=== PATIENT | male | born 1995 | race Caucasian/White ===

== ENCOUNTER 2023-11-22 03:39 | Emergency (ER) | payer OTHER ==
--- NOTE | 2023-11-22 03:58 | ERPHSYRPT ---
- History of Present Illness Source: patient Exam Limitations: no limitations Timing/Duration: today Severity: moderate Modifying Factors: Improves With: nothing Associated Symptoms: nausea, vomiting, abdominal pain, cough, fever, No shortness of breath, No chest pain, No rash Hx Tetanus, Diphtheria Vaccination/Date Given: Yes Hx Influenza Vaccination/Date Given: No Hx Pneumococcal Vaccination/Date Given: No <FAVIAN DE SANTIAGO - Last Filed: 11/22/23 07:04> <JACQUE ARAUZ - Last Filed: 11/22/23 11:59> - History of Present Illness Time Seen by Provider: 11/22/23 03:58 Physician History: pt has hx of binge drinking of ETOH. and misses his BP and other meds at those times, He is on chronic benzos for anxiety. He has no hallucination. No CP or ABd pain , but he is having some dry heaves now. He has a fever and ST so may have an infection . He is swallowing OK and is not SObreath. Chest is clear, ADb is nontender without peritoneal signs or masses. later develp abd tenderness so CT abd added. EMS serves as an independent source for HX. Discussed risks/benefits of testing and Tx with pt and family including IVF, Zofran, CBC, CMP, ATivan, lipase amylase, UA,CXR, CT abd,Rocephin , K replacement,and they wish to proceed so these are ordered. results discussed with pt. and family (FAVIAN DE SANTIAGO) Allergies/Adverse Reactions: No Known Drug Allergies Allergy (Verified 11/22/23 04:06) Home Medications: Alprazolam [Alprazolam ER] 1 mg PO DAILY 11/22/23 [History] Metoprolol Tartrate 25 mg [Lopressor 25MG Tab] 25 mg PO DAILY 11/22/23 [History] Trazodone HCl 50 mg [Desyrel 50 mg] 50 mg PO HS 11/22/23 [History] - Review of Systems Constitutional: Fever, No Chills Eyes: No Symptoms Ears, Nose, & Throat: Throat Pain Respiratory: Cough, No Dyspnea Cardiac: No Chest Pain, No Edema, No Syncope Abdominal/Gastrointestinal: Nausea, Vomiting, No Abdominal Pain, No Diarrhea Genitourinary Symptoms: No Dysuria Musculoskeletal: No Back Pain, No Neck Pain Skin: No Rash Neurological: No Dizziness, No Focal Weakness, No Sensory Changes Psychological: No Symptoms Endocrine: No Symptoms Hematologic/Lymphatic: No Symptoms Immunological/Allergic: No Symptoms All Other Systems: Reviewed and Negative <FAVIAN DE SANTIAGO Filed: 11/22/23 07:04> - Past Medical History Pertinent Past Medical History: Yes Neurological History: No Pertinent History ENT History: No Pertinent History Cardiac History: No Pertinent History Respiratory History: Asthma Endocrine Medical History: No Pertinent History Musculoskeletal History: No Pertinent History GI Medical History: No Pertinent History History: No Pertinent History Psycho-Social History: No Pertinent History Male Reproductive Disorders: No Pertinent History - Past Surgical History Past Surgical History: Yes Neuro Surgical History: No Pertinent History Cardiac: No Pertinent History Respiratory: No Pertinent History Gastrointestinal: No Pertinent History Genitourinary: No Pertinent History Musculoskeletal: Orthopedic Surgery Significant Family History: no pertinent family hx - Social History Smoking Status: Never smoker Exposure to second hand smoke: No Drug Use: none Patient Lives Alone: No <FAVIAN DE SANTIAGO Filed: 11/22/23 07:04> - Physical Exam General Appearance: no apparent distress, alert Eye Exam: PERRL/EOMI, eyes nml inspection Ears, Nose, Throat Exam: normal ENT inspection, TMs normal, pharynx normal, moist mucous membranes Neck Exam: normal inspection, non-tender, supple, full range of motion Respiratory Exam: normal breath sounds, lungs clear, No respiratory distress Cardiovascular Exam: regular rate/rhythm, normal heart sounds, normal peripheral pulses Gastrointestinal/Abdomen Exam: soft, normal bowel sounds, No tenderness, No mass Back Exam: normal inspection, normal range of motion, No CVA tenderness, No vertebral tenderness Extremity Exam: normal inspection, normal range of motion, pelvis stable Neurologic Exam: alert, oriented x 3, cooperative, normal mood/affect, nml cerebellar function, nml station & gait, sensation nml, No motor deficits Skin Exam: normal color, warm, dry, No rash Lymphatic Exam: No adenopathy SpO2 Interpretation: normal SpO2: 96 O2 Delivery: Room Air <FAVIAN DE SANTIAGO Filed: 11/22/23 07:04> - Nursing Vital Signs Nursing Vital Signs: Initial Vital Signs Temperature 101.7 F 11/22/23 03:47 Pulse Rate 122 H 11/22/23 03:47 Respiratory Rate 20 11/22/23 03:47 Blood Pressure 147/116 11/22/23 03:47 O2 Sat by Pulse Oximetry 96 11/22/23 03:47 Pain Scale Pain Intensity 2 - Course Nursing assessment & vital signs reviewed: Yes <FAVIAN DE SANTIAGO - Last Filed: 11/22/23 07:04> Ordered Tests: Active Orders 24 hr Category Date Time Status Clean Catch Urine Specimen STAT Care 11/22/23 03:53 Active IV Insertion STAT Care 11/22/23 04:25 Active ABDOMEN AND PELVIS W/0 CONTRAS [CT] Stat Exams 11/22/23 06:49 Completed CHEST 2 VIEWS (PA AND LAT) Stat Exams 11/22/23 06:19 Completed Alcohol [ETHYL ALCOHOL] Stat Lab 11/22/23 04:10 Completed CBC W DIFF Stat Lab 11/22/23 04:10 Completed CMP Stat Lab 11/22/23 04:10 Completed CULTURE,URINE Stat Lab 11/22/23 07:32 Received LIPASE Stat Lab 11/22/23 04:00 Completed Lactic Acid Stat Lab 11/22/23 04:39 Completed MAG [MAGNESIUM] Stat Lab 11/22/23 04:10 Completed UA W/RFX UR CULTURE Stat Lab 11/22/23 07:32 Completed Urine Triage Profile Stat Lab 11/22/23 04:10 Completed Medication Summary Discontinued Medications Generic Name Dose Route Start Last Admin Trade Name Parishq PRN Reason Stop Dose Admin Acetaminophen 1,000 mg 11/22/23 09:04 11/22/23 09:06 Acetaminophen 500 Mg Tablet PO 11/22/23 09:05 1,000 mg STAT STA Administration Acetaminophen Confirm 11/22/23 09:05 Acetaminophen 500 Mg Tablet Administered 11/22/23 09:06 Dose 1,000 mg .ROUTE .STK-MED ONE Famotidine 20 mg 11/22/23 04:39 11/22/23 04:50 Famotidine 20 Mg/1 Vial IV 11/22/23 04:40 20 mg STAT ONE Administration Famotidine Confirm 11/22/23 04:44 Famotidine 20 Mg/1 Vial Administered 11/22/23 04:45 Dose 20 mg IV .STK-MED ONE Sodium Chloride 1,000 mls @ 999 mls/hr 11/22/23 04:39 11/22/23 06:56 Sodium Chloride 0.9% 1000 Ml IV 11/22/23 05:39 Infused .Q1H1M STA Infusion Sodium Chloride Confirm 11/22/23 04:45 Sodium Chloride 0.9% 1000 Ml Administered 11/22/23 04:46 Dose 1,000 mls @ ud .ROUTE .STK-MED ONE Sodium Chloride 1,000 mls @ 999 mls/hr 11/22/23 06:12 11/22/23 08:51 Sodium Chloride 0.9% 1000 Ml IV 11/22/23 07:12 Infused .Q1H1M STA Infusion Ceftriaxone Sodium 1 gm in 100 mls @ 200 mls/hr 11/22/23 06:16 11/22/23 09:25 Rocephin 1 Gm / 100 Ml Nacl IV 11/22/23 06:45 Infused STAT ONE Infusion Sodium Chloride Confirm 11/22/23 07:24 Sodium Chloride 0.9% 1000 Ml Administered 11/22/23 07:25 Dose 1,000 mls @ ud .ROUTE .STK-MED ONE Magnesium Sulfate/Water 2 gm in 50 mls @ 100 mls/hr 11/22/23 07:50 11/22/23 08:51 Magnesium Sulf 2 G/50 Ml Bag IV 11/22/23 08:19 Infused ONCE ONE Infusion Magnesium Sulfate/Water Confirm 11/22/23 07:54 Magnesium Sulf 2 G/50 Ml Bag Administered 11/22/23 07:55 Dose 2 gm in 50 mls @ ud IV .STK-MED ONE Ceftriaxone Sodium Confirm 11/22/23 07:54 Rocephin 1 Gm / 100 Ml Nacl Administered 11/22/23 07:55 Dose 1 gm in 100 mls @ ud IV .STK-MED ONE Lorazepam 1 mg 11/22/23 04:38 11/22/23 04:50 Lorazepam 1 Mg Tablet PO 11/22/23 04:39 1 mg STAT ONE Administration Lorazepam Confirm 11/22/23 04:45 Lorazepam 1 Mg Tablet Administered 11/22/23 04:46 Dose 1 mg .ROUTE .STK-MED ONE Metoprolol Tartrate 25 mg 11/22/23 04:35 11/22/23 04:50 Metoprolol Tartrate 25 Mg Tab PO 11/22/23 04:36 25 mg STAT ONE Administration Metoprolol Tartrate Confirm 11/22/23 04:45 Metoprolol Tartrate 25 Mg Tab Administered 11/22/23 04:46 Dose 25 mg .ROUTE .STK-MED ONE Ondansetron HCl 4 mg 11/22/23 04:38 11/22/23 04:50 Ondansetron Hcl 4 Mg/2 Ml Vial IV 11/22/23 04:39 4 mg STAT ONE Administration Ondansetron HCl Confirm 11/22/23 04:44 Ondansetron Hcl 4 Mg/2 Ml Vial Administered 11/22/23 04:45 Dose 4 mg .ROUTE .STK-MED ONE Pantoprazole Sodium 40 mg 11/22/23 04:39 11/22/23 04:51 Pantoprazole 40 Mg Vial IV 11/22/23 04:40 40 mg STAT ONE Administration Pantoprazole Sodium Confirm 11/22/23 04:45 Pantoprazole 40 Mg Vial Administered 11/22/23 04:46 Dose 40 mg IV .STK-MED ONE Potassium Chloride 20 meq 11/22/23 06:10 11/22/23 08:03 Potassium Chloride Tab 10 Meq Tab PO 11/22/23 06:11 20 meq STAT ONE Administration Potassium Chloride 20 meq 11/22/23 06:11 11/22/23 08:04 Potassium Chloride Tab 10 Meq Tab PO 11/22/23 06:12 Not Given STAT ONE Potassium Chloride Confirm 11/22/23 07:54 Potassium Chloride Tab 10 Meq Tab Administered 11/22/23 07:55 Dose 20 meq .ROUTE .STK-MED ONE Sterile Water Confirm 11/22/23 04:44 Water For Injection,Sterile 10 Ml Vial Administered 11/22/23 04:45 Dose 10 ml IJ .STK-MED ONE Lab/Rad Data: Laboratory Result Diagrams 11/22/23 04:10 11/22/23 04:10 Laboratory Results 11/22/23 11/22/23 11/22/23 Range/Units 07:32 04:39 04:10 WBC (4.0-10.5) x10^3/uL RBC (4.1-5.6) x10^6/uL Hgb (12.5-18.0) g/dL Hct (42-50) % MCV (78-100) fL MCH (26-32) pg MCHC (32-36) g/dL RDW (11.5-14.0) % Plt Count (150-450) x10^3/uL MPV (7.5-11.0) fL Gran % (36.0-66.0) % Immature Gran % (Auto) (0.00-0.4) % Nucleat RBC Rel Count (0.00-0.1) % Eos # (Auto) (0-0.5) x10^3/uL Immature Gran # (Auto) (0.00-0.03) x10^3u/L Absolute Lymphs (auto) (1.0-4.6) x10^3/uL Absolute Monos (auto) (0.0-1.3) x10^3/uL Absolute Nucleated RBC (0.00-0.01) x10^3u/L Lymphocytes % (24.0-44.0) % Monocytes % (0.0-12.0) % Eosinophils % (0.00-5.0) % Basophils % (0.0-0.4) % Absolute Granulocytes (1.4-6.9) x10^3/uL Basophils # (0-0.4) x10^3/uL Sodium (135-145) mmol/L Potassium (3.5-5.1) mmol/L Chloride (98-107) mmol/L Carbon Dioxide (22-30) mmol/L Anion Gap (5-15) MEQ/L BUN (9-20) mg/dL Creatinine (0.66-1.25) mg/dL Estimated GFR ML/MIN Glucose (74-106) mg/dL Lactic Acid 1.6 (0.4-2.0) Calcium (8.4-10.2) mg/dL Magnesium 1.3 L (1.6-2.3) mg/dL Total Bilirubin (0.2-1.3) mg/dL AST (17-59) U/L ALT (0-50) U/L Alkaline Phosphatase (38-126) U/L Serum Total Protein (6.3-8.2) g/dL Albumin (3.5-5.0) g/dL Lipase (23-300) U/L Urine Color Yellow (Yellow) Urine Appearance Turbid A (Clear) Urine pH 5.5 (4.6-8.0) Ur Specific [place] 1.025 (1.005-1.030) Urine Protein Trace A (Negative) Urine Glucose (UA) 100 A (Negative) mg/dL Urine Ketones 40 A (Negative) Urine Blood Small A (Negative) Urine Nitrite Negative (Negative) Urine Bilirubin Negative (Negative) Urine Urobilinogen 0.2 (0.2) mg/dL Ur Leukocyte Esterase Negative (Negative) U Hyaline Cast (Auto) NONE SEEN (0-2) /LPF Urine Microscopic RBC 3-5 (0-5) /HPF Urine Microscopic WBC 0-2 (0-5) /HPF Ur Epithelial Cells None Seen (None Seen) /HPF Urine Bacteria None Seen (None Seen) /HPF Urine Culture Reflexed YES (NO) Urine Opiates Level (NEGATIVE) Ur Methadone (NEGATIVE) Urine Barbiturates (NEGATIVE) Ur Phencyclidine (PCP) (NEGATIVE) Urine Amphetamine (NEGATIVE) U Benzodiazepine Level (NEGATIVE) Urine Cocaine (NEGATIVE) Urine Marijuana (THC) (NEGATIVE) Ethyl Alcohol (0-10) mg/dL Influenza Type A Ag (NEGATIVE) Influenza Type B Ag (NEGATIVE) RSV (PCR) (NEGATIVE) SARS-CoV-2 (PCR) (NEGATIVE) Group A Strep Antibody (NEGATIVE) 11/22/23 11/22/23 11/22/23 Range/Units 04:10 04:10 04:10 WBC (4.0-10.5) x10^3/uL RBC (4.1-5.6) x10^6/uL Hgb (12.5-18.0) g/dL Hct (42-50) % MCV (78-100) fL MCH (26-32) pg MCHC (32-36) g/dL RDW (11.5-14.0) % Plt Count (150-450) x10^3/uL MPV (7.5-11.0) fL Gran % (36.0-66.0) % Immature Gran % (Auto) (0.00-0.4) % Nucleat RBC Rel Count (0.00-0.1) % Eos # (Auto) (0-0.5) x10^3/uL Immature Gran # (Auto) (0.00-0.03) x10^3u/L Absolute Lymphs (auto) (1.0-4.6) x10^3/uL Absolute Monos (auto) (0.0-1.3) x10^3/uL Absolute Nucleated RBC (0.00-0.01) x10^3u/L Lymphocytes % (24.0-44.0) % Monocytes % (0.0-12.0) % Eosinophils % (0.00-5.0) % Basophils % (0.0-0.4) % Absolute Granulocytes (1.4-6.9) x10^3/uL Basophils # (0-0.4) x10^3/uL Sodium 133 L (135-145) mmol/L Potassium 3.1 L (3.5-5.1) mmol/L Chloride 98 (98-107) mmol/L Carbon Dioxide 25 (22-30) mmol/L Anion Gap 13.3 (5-15) MEQ/L BUN 5 L (9-20) mg/dL Creatinine 0.81 (0.66-1.25) mg/dL Estimated GFR 124.7 ML/MIN Glucose 146 H (74-106) mg/dL Lactic Acid (0.4-2.0) Calcium 9.4 (8.4-10.2) mg/dL Magnesium (1.6-2.3) mg/dL Total Bilirubin 0.80 (0.2-1.3) mg/dL AST 40 (17-59) U/L ALT 52 H (0-50) U/L Alkaline Phosphatase 125 (38-126) U/L Serum Total Protein 8.2 (6.3-8.2) g/dL Albumin 4.8 (3.5-5.0) g/dL Lipase (23-300) U/L Urine Color (Yellow) Urine Appearance (Clear) Urine pH (4.6-8.0) Ur Specific [place] (1.005-1.030) Urine Protein (Negative) Urine Glucose (UA) (Negative) mg/dL Urine Ketones (Negative) Urine Blood (Negative) Urine Nitrite (Negative) Urine Bilirubin (Negative) Urine Urobilinogen (0.2) mg/dL Ur Leukocyte Esterase (Negative) U Hyaline Cast (Auto) (0-2) /LPF Urine Microscopic RBC (0-5) /HPF Urine Microscopic WBC (0-5) /HPF Ur Epithelial Cells (None Seen) /HPF Urine Bacteria (None Seen) /HPF Urine Culture Reflexed (NO) Urine Opiates Level NEGATIVE (NEGATIVE) Ur Methadone NEGATIVE (NEGATIVE) Urine Barbiturates NEGATIVE (NEGATIVE) Ur Phencyclidine (PCP) NEGATIVE (NEGATIVE) Urine Amphetamine NEGATIVE (NEGATIVE) U Benzodiazepine Level POSITIVE A (NEGATIVE) Urine Cocaine NEGATIVE (NEGATIVE) Urine Marijuana (THC) NEGATIVE (NEGATIVE) Ethyl Alcohol < 10 (0-10) mg/dL Influenza Type A Ag (NEGATIVE) Influenza Type B Ag (NEGATIVE) RSV (PCR) (NEGATIVE) SARS-CoV-2 (PCR) (NEGATIVE) Group A Strep Antibody (NEGATIVE) 11/22/23 11/22/23 11/22/23 Range/Units 04:10 04:10 04:10 WBC 17.0 H (4.0-10.5) x10^3/uL RBC 5.05 (4.1-5.6) x10^6/uL Hgb 15.9 (12.5-18.0) g/dL Hct 44.8 (42-50) % MCV 88.7 (78-100) fL MCH 31.5 (26-32) pg MCHC 35.5 (32-36) g/dL RDW 12.1 (11.5-14.0) % Plt Count 442 (150-450) x10^3/uL MPV 9.1 (7.5-11.0) fL Gran % 90.9 H (36.0-66.0) % Immature Gran % (Auto) 0.4 (0.00-0.4) % Nucleat RBC Rel Count 0.0 (0.00-0.1) % Eos # (Auto) 0.05 (0-0.5) x10^3/uL Immature Gran # (Auto) 0.07 H (0.00-0.03) x10^3u/L Absolute Lymphs (auto) 0.68 L (1.0-4.6) x10^3/uL Absolute Monos (auto) 0.70 (0.0-1.3) x10^3/uL Absolute Nucleated RBC 0.00 (0.00-0.01) x10^3u/L Lymphocytes % 4.0 L (24.0-44.0) % Monocytes % 4.1 (0.0-12.0) % Eosinophils % 0.3 (0.00-5.0) % Basophils % 0.3 (0.0-0.4) % Absolute Granulocytes 15.43 H (1.4-6.9) x10^3/uL Basophils # 0.05 (0-0.4) x10^3/uL Sodium (135-145) mmol/L Potassium (3.5-5.1) mmol/L Chloride (98-107) mmol/L Carbon Dioxide (22-30) mmol/L Anion Gap (5-15) MEQ/L BUN (9-20) mg/dL Creatinine (0.66-1.25) mg/dL Estimated GFR ML/MIN Glucose (74-106) mg/dL Lactic Acid (0.4-2.0) Calcium (8.4-10.2) mg/dL Magnesium (1.6-2.3) mg/dL Total Bilirubin (0.2-1.3) mg/dL AST (17-59) U/L ALT (0-50) U/L Alkaline Phosphatase (38-126) U/L Serum Total Protein (6.3-8.2) g/dL Albumin (3.5-5.0) g/dL Lipase (23-300) U/L Urine Color (Yellow) Urine Appearance (Clear) Urine pH (4.6-8.0) Ur Specific [place] (1.005-1.030) Urine Protein (Negative) Urine Glucose (UA) (Negative) mg/dL Urine Ketones (Negative) Urine Blood (Negative) Urine Nitrite (Negative) Urine Bilirubin (Negative) Urine Urobilinogen (0.2) mg/dL Ur Leukocyte Esterase (Negative) U Hyaline Cast (Auto) (0-2) /LPF Urine Microscopic RBC (0-5) /HPF Urine Microscopic WBC (0-5) /HPF Ur Epithelial Cells (None Seen) /HPF Urine Bacteria (None Seen) /HPF Urine Culture Reflexed (NO) Urine Opiates Level (NEGATIVE) Ur Methadone (NEGATIVE) Urine Barbiturates (NEGATIVE) Ur Phencyclidine (PCP) (NEGATIVE) Urine Amphetamine (NEGATIVE) U Benzodiazepine Level (NEGATIVE) Urine Cocaine (NEGATIVE) Urine Marijuana (THC) (NEGATIVE) Ethyl Alcohol (0-10) mg/dL Influenza Type A Ag NEGATIVE (NEGATIVE) Influenza Type B Ag NEGATIVE (NEGATIVE) RSV (PCR) NEGATIVE (NEGATIVE) SARS-CoV-2 (PCR) NEGATIVE (NEGATIVE) Group A Strep Antibody NOT DETECTED (NEGATIVE) 11/22/23 Range/Units 04:00 WBC (4.0-10.5) x10^3/uL RBC (4.1-5.6) x10^6/uL Hgb (12.5-18.0) g/dL Hct (42-50) % MCV (78-100) fL MCH (26-32) pg MCHC (32-36) g/dL RDW (11.5-14.0) % Plt Count (150-450) x10^3/uL MPV (7.5-11.0) fL Gran % (36.0-66.0) % Immature Gran % (Auto) (0.00-0.4) % Nucleat RBC Rel Count (0.00-0.1) % Eos # (Auto) (0-0.5) x10^3/uL Immature Gran # (Auto) (0.00-0.03) x10^3u/L Absolute Lymphs (auto) (1.0-4.6) x10^3/uL Absolute Monos (auto) (0.0-1.3) x10^3/uL Absolute Nucleated RBC (0.00-0.01) x10^3u/L Lymphocytes % (24.0-44.0) % Monocytes % (0.0-12.0) % Eosinophils % (0.00-5.0) % Basophils % (0.0-0.4) % Absolute Granulocytes (1.4-6.9) x10^3/uL Basophils # (0-0.4) x10^3/uL Sodium (135-145) mmol/L Potassium (3.5-5.1) mmol/L Chloride (98-107) mmol/L Carbon Dioxide (22-30) mmol/L Anion Gap (5-15) MEQ/L BUN (9-20) mg/dL Creatinine (0.66-1.25) mg/dL Estimated GFR ML/MIN Glucose (74-106) mg/dL Lactic Acid (0.4-2.0) Calcium (8.4-10.2) mg/dL Magnesium (1.6-2.3) mg/dL Total Bilirubin (0.2-1.3) mg/dL AST (17-59) U/L ALT (0-50) U/L Alkaline Phosphatase (38-126) U/L Serum Total Protein (6.3-8.2) g/dL Albumin (3.5-5.0) g/dL Lipase 74 (23-300) U/L Urine Color (Yellow) Urine Appearance (Clear) Urine pH (4.6-8.0) Ur Specific [place] (1.005-1.030) Urine Protein (Negative) Urine Glucose (UA) (Negative) mg/dL Urine Ketones (Negative) Urine Blood (Negative) Urine Nitrite (Negative) Urine Bilirubin (Negative) Urine Urobilinogen (0.2) mg/dL Ur Leukocyte Esterase (Negative) U Hyaline Cast (Auto) (0-2) /LPF Urine Microscopic RBC (0-5) /HPF Urine Microscopic WBC (0-5) /HPF Ur Epithelial Cells (None Seen) /HPF Urine Bacteria (None Seen) /HPF Urine Culture Reflexed (NO) Urine Opiates Level (NEGATIVE) Ur Methadone (NEGATIVE) Urine Barbiturates (NEGATIVE) Ur Phencyclidine (PCP) (NEGATIVE) Urine Amphetamine (NEGATIVE) U Benzodiazepine Level (NEGATIVE) Urine Cocaine (NEGATIVE) Urine Marijuana (THC) (NEGATIVE) Ethyl Alcohol (0-10) mg/dL Influenza Type A Ag (NEGATIVE) Influenza Type B Ag (NEGATIVE) RSV (PCR) (NEGATIVE) SARS-CoV-2 (PCR) (NEGATIVE) Group A Strep Antibody (NEGATIVE) - Progress Progress: improved, re-examined Counseled pt/family regarding: lab results, diagnosis, need for follow-up, rad results <FAVIAN DE SANTIAGO - Last Filed: 11/22/23 07:04> <JACQUE ARAUZ - Last Filed: 11/22/23 11:59> - Progress Progress Note: 11/22/23 06:51 pt is handed over to Dr. Arauz at change of shift for final disposition and interpretation of remaining labs and imaging after discussion of the findings and pendings and introduction. (FAVIAN DE SANTIAGO) 11/22/23 11:51 Patient is checked out to me at end of Dr. Valera shift with pending CT results. Patient presented with fever/sore throat and some dry heaving and while in the ER developed some abdominal pain and vomited once. Patient has a temperature of 103, I have given him Tylenol, feeling better. During my evaluation patient has bilateral clear lungs, abdominal exam is soft nontender with hypoactive bowel sounds. Patient workup showed white count of 17, normal lactate, potassium of 3.1 and magnesium of 1.3, started on replacement. Patient chest x-ray negative for any acute cardiopulmonary findings reviewed by me followed by official read. Patient CT showed moderately dilated small bowel loops with air-fluid levels and mildly dilated transverse colon and edema of ascending and descending colon with some mesenteric stranding suggesting acute colitis. Patient has been given a dose of Rocephin by Dr. Valera. Has negative strep flu and COVID. Last drink was 2 days ago. Patient is advised to stay in the hospital with IV antibiotics and fluids but he does not want to stay in the hospital at all. Patient is ad amant about going home. He likes to have oral antibiotics. I would start him on Levaquin and Flagyl and recommended taking Tylenol ibuprofen as needed. Discussed with patient about not to drink while being on Flagyl because of disulfiram reaction. Patient understands and agrees with it. Patient is not a daily drinker but binge drinker. Discussed signs symptoms of worsening needing return to ER which she seems understanding. Stable for discharge. (JACQUE ARAUZ) Medical Desision Making - Discussion of managment Reviewed:: Test results, Need for additional workup Agreed on:: Treatment plan, need for follow-up - Diagnostic Testing Diagnostic test were ordered, analyzed, and reviewed by me: Yes - Risk of complications The pt has a mod risk of morbidity or mortality based on: Need for prescription drug management The pt has a high risk of morbidity or mortality based on: Decision regarding hospitilization or escalation of hosp level of care <FAVIAN DE SANTIAGO - Last Filed: 11/22/23 07:04> - Diagnostic Testing Radiological Interpretation: Interpreted by me, Reviewed by me <JACQUE AARUZ - Last Filed: 11/22/23 11:59> - Departure Critical Care Time: No <FAVIAN DE SANTIAGO - Last Filed: 11/22/23 07:04> - Departure Departure Disposition: Home <JACQUE ARAUZ - Last Filed: 11/22/23 11:59> - Departure Clinical Impression: Colitis, Hypokalemia, Hypomagnesemia Condition: Good Referrals: ALIYAH ESPITIA [Primary Care Provider] - Follow up with PCP 1 day Instructions: Colitis, High-potassium diet, Colitis - Discharge ins tructions Additional Instructions: Drink plenty of fluids to keep yourself well-hydrated. Follow-up with primary care for reevaluation in 1 to 2 days. Take Tylenol/ibuprofen as needed. Return to ER for intractable abdominal pain/vomiting/diarrhea/fever chills etc. do not drink alcohol while taking Flagyl. Prescriptions: Metronidazole 500 mg [Flagyl 500 MG] 500 mg PO TID #30 tablet Levofloxacin [Levaquin 500 MG Tablet] 500 mg PO DAILY #10 tablet Potassium Chloride 20 meq PO DAILY 5 Days #5 tablet
[2023-11-22 04:28] LABS: ALBUMIN 4.8 g/dL (3.5-5.0); ANION GAP 13.3 MEQ/L (5-15); BILIRUBIN,TOTAL 0.8 mg/dL (0.2-1.3); Calcium 9.4 mg/dL (8.4-10.2); Creatinine 1 0.81 mg/dL (0.66-1.25); EST GLOMERULAR FILTRATION RATE 124.7 ML/MIN; Potassium 3.1 mmol/L (3.5-5.1); Total Protein 8.2 g/dL (6.3-8.2)
[2023-11-22 04:30] LABS: Amphetamine,Urine NEGATIVE (NEGATIVE); Barbiturate,Urine NEGATIVE (NEGATIVE); Benzodiazepine,Urine POSITIVE (NEGATIVE); Cocaine,Urine NEGATIVE (NEGATIVE); Methadone,Urine NEGATIVE (NEGATIVE); Opiate,Urine NEGATIVE (NEGATIVE); PCP,Urine NEGATIVE (NEGATIVE); THC,Urine NEGATIVE (NEGATIVE)
[2023-11-22 04:32] LABS: Absolute Neutrophil Ct (ANC) 15.43 x10^3/uL (1.4-6.9); BASOPHIL % 0.3 % (0.0-0.4); Basophil (Absolute #) 0.05 x10^3/uL (0-0.4); Eosinophil % 0.3 % (0.00-5.0); Eosinophil (Absolute #) 0.05 x10^3/uL (0-0.5); Hematocrit 44.8 % (42-50); Hemoglobin 15.9 g/dL (12.5-18.0); IMMATURE GRAN # 0.07 x10^3u/L (0.00-0.03); IMMATURE GRAN % 0.4 % (0.00-0.4); Lymphocyte (Absolute #) 0.68 x10^3/uL (1.0-4.6); Mean Cell Volume 88.7 fL (78-100); Mean Corpuscular Hemoglobin 31.5 pg (26-32); Mean Corpuscular Hgb Concent. 35.5 g/dL (32-36); Mean Platelet Volume 9.1 fL (7.5-11.0); Monocytes % 4.1 % (0.0-12.0); Neutrophil % 90.9 % (36.0-66.0); Platelet Count 442 x10^3/uL (150-450); Red Blood Count 5.05 x10^6/uL (4.1-5.6); Red Cell Distribution Width 12.1 % (11.5-14.0)
[2023-11-22] MEDS ORDERED: Zofran 4 MG/2 ML VIAL ONE (04:44)
[2023-11-22] MEDS ORDERED: Sterile H2O 10 ml IJ ONE (04:44)
[2023-11-22] MEDS ORDERED: Pepcid 20 MG VIAL IV ONE (04:44)
[2023-11-22] MEDS ORDERED: Lopressor 25MG Tab ONE (04:45)
[2023-11-22] MEDS ORDERED: PROTONIX 40 MG IV IV ONE (04:45)
[2023-11-22] MEDS ORDERED: Ativan 1 MG ONE (04:45)
[2023-11-22] MEDS ORDERED: Sodium Chloride 0.9% 1000 ML 1,000 ML ONE ×2 (04:45→07:24)
[2023-11-22] MEDS: Sodium Chloride 0.9% 1000 ML 1,000 ML IV STA ×2 (04:48→07:48)
[2023-11-22] MEDS: Ativan 1 MG PO ONE (04:50)
[2023-11-22] MEDS: Zofran 4 MG/2 ML VIAL IV ONE (04:50)
[2023-11-22] MEDS: Lopressor 25MG Tab PO ONE (04:50)
[2023-11-22] MEDS: Pepcid 20 MG VIAL IV ONE (04:50)
[2023-11-22 04:51] LABS: INFLUENZA A NEGATIVE (NEGATIVE); INFLUENZA B NEGATIVE (NEGATIVE); RESPIRATORY SYNCTIAL VIRUS NEGATIVE (NEGATIVE); SARS-CoV-2 Xpert Express NEGATIVE (NEGATIVE)
[2023-11-22] MEDS: PROTONIX 40 MG IV IV ONE (04:51)
[2023-11-22 05:14] VITALS: PULSE 106; RESP 16
[2023-11-22 07:53] LABS: Appearance Turbid (Clear); Bacteria None Seen /HPF (None Seen); Bilirubin Negative (Negative); Blood Small (Negative); Epithelial Cells None Seen /HPF (None Seen); Glucose, Urine 100 mg/dL (Negative); Hyaline Casts NONE SEEN /LPF (0-2); Ketones 40 (Negative); Leukocyte Esterase Negative (Negative); Nitrite Negative (Negative); Ph 5.5 (4.6-8.0); Protein,Urine Dip Trace (Negative); Specific Gravity 1.025 (1.005-1.030); Urobilinogen 0.2 mg/dL (0.2); WBC 0-2 /HPF (0-5)
[2023-11-22 07:54] LABS: ADD URINE CULTURE? YES (NO)
[2023-11-22] MEDS ORDERED: Klor Con ONE (07:54)
[2023-11-22] MEDS ORDERED: MAGNESIUM SULF 2 G/50 ML BAG 2 GM/50 ML PIGGYBACK IV ONE (07:54)
[2023-11-22] MEDS ORDERED: ROCEPHIN 1 GM / 100 ML NaCl 1 GM/100 ML IVPB IV ONE (07:54)
[2023-11-22] MEDS: MAGNESIUM SULF 2 G/50 ML BAG 2 GM/50 ML PIGGYBACK IV ONE (07:57)
[2023-11-22] MEDS: Klor Con PO ONE ×2 (08:03→08:04)
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
[2023-11-22] MEDS: ROCEPHIN 1 GM / 100 ML NaCl 1 GM/100 ML IVPB IV ONE (08:52)
[2023-11-22 09:03] VITALS: TEMP 103.2
[2023-11-22] MEDS ORDERED: TYLENOL EXTRA STRENGTH 500 MG ONE (09:05)
[2023-11-22] MEDS: TYLENOL EXTRA STRENGTH 500 MG PO STA (09:06)
[2023-11-22 11:15] VITALS: BP 97/62; O2SAT 95
--- NOTE | 2023-11-22 11:25 | XRAY ---
CLINICAL HISTORY: abd pain and fever COMPARISON: None. TECHNIQUE: CT of the abdomen and pelvis was performed with axial images as well as sagittal and coronal reconstruction images without intravenous contrast. One of the following dose reduction techniques was utilized for this exam.Automated exposure control, adjustment of the mA and/or kV according to patient size, and use of iterative reconstruction. FINDINGS: Hepatomegaly, measuring 19 cm at the largest craniocaudal span in the right lobe No focal or diffuse parenchymal abnormality. No hepatic mass is identified. The portal vein, intrahepatic biliary radicals and the bile ducts are normal. Gallbladder appears normal with wall thickness. No radio-opaque calculus or pericholecystic fluid was identified. Common bile appears normal. Pancreas appears normal. No peripancreatic fat stranding, pancreatic pseudocyst or peripancreatic fluid collection. Spleen normal in size, no mass seen. Both adrenal glands are unremarkable. Both kidneys are normal in size, shape and orientation. No calculi, cyst mass or hydronephrosis seen on either side. Both ureters and urinary bladder appear normal. Moderate dilation of small bowel loops, filled with liquid and gaseous content, forming some air-fluid levels. The colon is mildly dilated (measuring up to 4 cm the transverse colon), with mild wall edema mainly in the ascending and descending colon, and a subtle "halo-fat sign" in the latter. Appendix is separately visualized and is normal in caliber without features of acute appendicitis. Caecum and ileocecal junction appear normal. Engorgement of vasa recta is also visualized, and several small mesenteric lymph nodes, although not enlarged. Visualized thoracic and lumbar spine appear normal. No lytic or sclerotic bone lesions in visualized bones. IMPRESSION: Moderate dilation of small bowel loops, filled with liquid and gaseous content, forming some air-fluid levels. Mildly dilated transverse colon, and edema in the ascending and descending colonic wall. Engorgement of vasa recta is also visualized, and several small mesenteric lymph nodes, although not enlarged. Hepatomegaly (19 cm). These are suggestive of colitis with accompanying subocclusion findings. Correlate clinically. Follow-up recommended. [facility] ER was called at [phone] at 11:18 PM EST, 11/22/2023 and results were verbally communicated to Dr Reeves Electronically Signed by: Jhonatan Garza MD. (11/22/2023 11:22:15 EDT)
== END 2023-11-22 12:17 | disposition home or self-care (01) ==
LOC: ED 03:39
DX: K52.9 Noninfective gastroenteritis and colitis, unspecified (principal); E87.6 Hypokalemia; E83.42 Hypomagnesemia; R50.9 Fever, unspecified; J02.9 Acute pharyngitis, unspecified; R11.2 Nausea with vomiting, unspecified; Z79.899 Other long term (current) drug therapy
CPT/HCPCS: 0241U; 36000; 36415; 71046; 74176; 80053; 80307; 81001; 82077; 83605; 83690; 83735; 85025; 87086; 87651; 96360; 96365; 96374; 96375; 99285; J0696; J2405; A9270-GY; J3475

== ENCOUNTER 2024-03-06 13:10 | Emergency (ER) | payer OTHER ==
[2024-03-06 13:30] VITALS: TEMP 98.3
[2024-03-06 13:58] VITALS: O2SAT 98
[2024-03-06 14:01] LABS: Absolute Neutrophil Ct (ANC) 5.29 x10^3/uL (1.78-5.38); BASOPHIL % 0.7 % (0.2-1.2); Basophil (Absolute #) 0.05 x10^3/uL (0.01-0.08); Eosinophil % 0.1 % (0.8-7.0); Eosinophil (Absolute #) 0.01 x10^3/uL (0.04-0.54); Hematocrit 42.7 % (40.1-51.0); Hemoglobin 14.9 g/dL (13.7-17.5); IMMATURE GRAN # 0.02 x10^3u/L (0.001-0.031); IMMATURE GRAN % 0.3 % (0.001-0.429); Lymphocyte (Absolute #) 0.98 x10^3/uL (1.32-3.57); Lymphocytes % 14.3 % (21.8-53.1); Mean Cell Volume 89.9 fL (79.0-92.2); Mean Corpuscular Hemoglobin 31.4 pg (25.7-32.2); Mean Corpuscular Hgb Concent. 34.9 g/dL (32.3-36.5); Mean Platelet Volume 8.8 fL (9.4-12.4); Monocytes % 7.3 % (5.3-12.2); Neutrophil % 77.3 % (34.0-67.9); Platelet Count 357 x10^3/uL (163-337); Red Blood Count 4.75 x10^6/uL (4.63-6.08); Red Cell Distribution Width 12.5 % (11.6-14.4); White Blood Count 6.9 x10^3/uL (4.23-9.07)
--- NOTE | 2024-03-06 14:02 | ERPHSYRPT ---
- History of Present Illness Time Seen by Provider: 03/06/24 13:13 Source: patient Exam Limitations: no limitations Patient Subjective Stated Complaint: pt has waken up the past couple of days with vertigo so he feels he is going through alcohol withdraw Triage Nursing Assessment: Pt brought to the ER by his mother, hypertensive, no pain, dizziness with mild nausea, last drank on Wednesday morning and had one beer yesterday to see if it would help him, doesn't appear to be in any distress Physician History: Patient states that he does use alcohol. Has not used in 72 hours. Is concerned about withdrawal. Patient has a history of intermittent alcohol abuse over the past 3 years. States he does go on "benders". No falls or other traumas. Patient states that he has not felt well. He did try to drink beer yesterday. States that he feels fuzzy. He is unsure anything else to make it better or worse. Patient states that he did recently go through a really bad break-up. States that he did see his ex partner yesterday. 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 Allergies/Adverse Reactions: No Known Drug Allergies Allergy (Verified 03/06/24 13:30) Home Medications: Alprazolam [Alprazolam ER] 1 mg PO DAILY 11/22/23 [History] Metoprolol Succinate 25 mg Xl* [Toprol-Xl 25MG Tablets] 25 mg PO DAILY 03/06/24 [History] Hx Tetanus, Diphtheria Vaccination/Date Given: Yes Hx Influenza Vaccination/Date Given: No Hx Pneumococcal Vaccination/Date Given: No Travel Risk - International Travel Have you traveled outside of the country in past 3 weeks: No - Emerging Infectious Disease Are you exhibiting symptoms associated with any current EIDs: No - Past Medical History Pertinent Past Medical History: Yes Neurological History: No Pertinent History ENT History: No Pertinent History Cardiac History: No Pertinent History Respiratory History: Asthma Endocrine Medical History: No Pertinent History Musculoskeletal History: No Pertinent History GI Medical History: No Pertinent History History: No Pertinent History Psycho-Social History: Anxiety, Bipolar Male Reproductive Disorders: No Pertinent History Other Medical History: moderate alcohol use disorder - Past Surgical History Past Surgical History: Yes Neuro Surgical History: No Pertinent History Cardiac: No Pertinent History Respiratory: No Pertinent History Gastrointestinal: No Pertinent History Genitourinary: No Pertinent History Musculoskeletal: Orthopedic Surgery Significant Family History: no pertinent family hx - Social History Smoking Status: Current every day smoker Exposure to second hand smoke: Yes Drug Use: none Patient Lives Alone: No - Social Determinants of Health Will the patient participate in the screening: Yes Do you worry about a steady place to live?: No Do you have any problems with any of the following?: No known problems In the past 12 months,have you had to go without utilities?: No Transportation Issues: No Has anyone in your support network made you feel unsafe?: No Have you or anyone in your house had to go without enough: No - Nursing Vital Signs Nursing Vital Signs: Initial Vital Signs Temperature 98.3 F 03/06/24 13:20 Pulse Rate 86 03/06/24 13:20 Blood Pressure 172/118 03/06/24 13:20 O2 Sat by Pulse Oximetry 99 03/06/24 13:20 Pain Scale Pain Intensity 0 - Physical Exam SpO2: 98 Comments: 03/06/24 15:40 Review of Systems Constitutional: Negative for fever. HENT: Negative for congestion. Respiratory: Negative for shortness of breath. Cardiovascular: Negative for chest pain. Gastrointestinal: Negative for abdominal pain. Genitourinary: Negative for dysuria. Musculoskeletal: Negative for back pain. Skin: Negative for rash. Neurological: Negative for headaches. Psychiatric/Behavioral: Negative for behavioral problems. All other systems reviewed and are negative. Physical Exam Vitals signs and nursing note reviewed. Constitutional: Appearance: Patient is well-developed. HENT: Head: Normocephalic and atraumatic. Eyes: Conjunctiva/sclera: Conjunctivae normal. Neck: Musculoskeletal: Normal range of motion. Trachea: No tracheal deviation. Cardiovascular: Rate and Rhythm: Normal rate. Pulmonary: Effort: Pulmonary effort is normal. No respiratory distress. Abdominal: Palpations: Abdomen is soft. Musculoskeletal: General: No deformity. Skin: General: Skin is warm and dry. Neurological/ Psychiatric: Mental Status: Mental status, behavior, interaction with environment is appropriate for patient's age and condition Motor: There is no pronator drift of out-stretched arms. Muscle bulk and tone are normal. Strength is full bilaterally. Reflexes: Reflexes are 2+ and symmetric at the biceps, triceps, knees, and a nkles. Plantar responses are flexor. Sensory: Light touch sense are intact in bilateral upper and lower extremities. There is no sign of neglect. Coordination: Rapid alternating movements are intact. There is no dysmetria on [id number] and [id number]. There are no abnormal or extraneous mo vements. Romberg is absent. Gait/Stance: Posture is normal, patient is ambultory without difficuly to bed - Course Nursing assessment & vital signs reviewed: Yes Ordered Tests: Active Orders 24 hr Category Date Time Status EKG-ER Only STAT Care 03/06/24 13:44 Active IV Insertion STAT Care 03/06/24 13:44 Active HEAD WITHOUT CONTRAST [CT] Stat Exams 03/06/24 13:45 Completed ACETAMINOPHEN Stat Lab 03/06/24 13:50 Completed CBC W DIFF Stat Lab 03/06/24 13:50 Completed CMP Stat Lab 03/06/24 13:50 Completed ETHYL ALCOHOL Stat Lab 03/06/24 13:50 Completed SALICYLATE Stat Lab 03/06/24 13:50 Completed UA W/RFX UR CULTURE Stat Lab 03/06/24 13:56 Completed Urine Triage Profile Stat Lab 03/06/24 13:56 Completed Medication Summary Discontinued Medications Generic Name Dose Route Start Last Admin Trade Name Parishq PRN Reason Stop Dose Admin Sodium Chloride 1,000 mls @ 999 mls/hr 03/06/24 13:44 03/06/24 15:20 Sodium Chloride 0.9% 1000 Ml IV 03/06/24 14:44 Infused .Q1H1M STA Infusion Sodium Chloride Confirm 03/06/24 14:09 Sodium Chloride 0.9% 1000 Ml Administered 03/06/24 14:10 Dose 1,000 mls @ ud .ROUTE .STK-MED ONE Lorazepam 1 mg 03/06/24 13:44 03/06/24 14:12 Lorazepam 2 Mg/1 Ml 2 Mg Vial IV 03/06/24 13:45 1 mg STAT ONE Administration Lorazepam Confirm 03/06/24 14:09 Lorazepam 2 Mg/1 Ml 2 Mg Vial Administered 03/06/24 14:10 Dose 2 mg .ROUTE .STK-MED ONE Ondansetron HCl 4 mg 03/06/24 13:44 03/06/24 14:12 Ondansetron Hcl 4 Mg/2 Ml Vial IV 03/06/24 13:45 4 mg STAT ONE Administration Ondansetron HCl Confirm 03/06/24 14:08 Ondansetron Hcl 4 Mg/2 Ml Vial Administered 03/06/24 14:09 Dose 4 mg .ROUTE .STK-MED ONE Thiamine HCl 100 mg 03/06/24 13:44 03/06/24 14:12 Thiamine Hcl 200 Mg/2 Ml Vial IV 03/06/24 13:45 100 mg STAT ONE Administration Thiamine HCl Confirm 03/06/24 14:09 Thiamine Hcl 200 Mg/2 Ml Vial Administered 03/06/24 14:10 Dose 200 mg .ROUTE .STK-MED ONE Lab/Rad Data: Laboratory Result Diagrams 03/06/24 13:50 03/06/24 13:50 Laboratory Results 03/06/24 03/06/24 03/06/24 Range/Units 13:56 13:56 13:50 WBC (4.23-9.07) x10^3/uL RBC (4.63-6.08) x10^6/uL Hgb (13.7-17.5) g/dL Hct (40.1-51.0) % MCV (79.0-92.2) fL MCH (25.7-32.2) pg MCHC (32.3-36.5) g/dL RDW (11.6-14.4) % Plt Count (163-337) x10^3/uL MPV (9.4-12.4) fL Gran % (34.0-67.9) % Immature Gran % (Auto) (0.001-0.429) % Nucleat RBC Rel Count (0.00-0.2) % Eos # (Auto) (0.04-0.54) x10^3/uL Immature Gran # (Auto) (0.001-0.031) x10^3u/L Absolute Lymphs (auto) (1.32-3.57) x10^3/uL Absolute Monos (auto) (0.30-0.82) x10^3/uL Absolute Nucleated RBC (0.00-0.012) x10^3u/L Lymphocytes % (21.8-53.1) % Monocytes % (5.3-12.2) % Eosinophils % (0.8-7.0) % Basophils % (0.2-1.2) % Absolute Granulocytes (1.78-5.38) x10^3/uL Basophils # (0.01-0.08) x10^3/uL Sodium 136 (135-145) mmol/L Potassium 3.6 (3.5-5.1) mmol/L Chloride 102 (98-107) mmol/L Carbon Dioxide 25 (22-30) mmol/L Anion Gap 13.4 (5-15) MEQ/L BUN 5 L (9-20) mg/dL Creatinine 0.67 (0.66-1.25) mg/dL Estimated GFR 132.1 ML/MIN Glucose 116 H (74-106) mg/dL Calcium 9.5 (8.4-10.2) mg/dL Total Bilirubin 0.90 (0.2-1.3) mg/dL AST 54 (17-59) U/L ALT 46 (0-50) U/L Alkaline Phosphatase 145 H (38-126) U/L Serum Total Protein 7.3 (6.3-8.2) g/dL Albumin 4.4 (3.5-5.0) g/dL Urine Color Yellow (Yellow) Urine Appearance Clear (Clear) Urine pH 6.5 (4.6-8.0) Ur Specific [place] <=1.005 (1.005-1.030) Urine Protein Negative (Negative) Urine Glucose (UA) Negative (Negative) mg/dL Urine Ketones 15 A (Negative) Urine Blood Negative (Negative) Urine Nitrite Negative (Negative) Urine Bilirubin Negative (Negative) Urine Urobilinogen 0.2 (0.2) mg/dL Ur Leukocyte Esterase Negative (Negative) U Hyaline Cast (Auto) NONE SEEN (0-2) /LPF Urine Microscopic RBC 0-2 (0-5) /HPF Urine Microscopic WBC 0-2 (0-5) /HPF Ur Epithelial Cells None Seen (None Seen) /HPF Urine Bacteria None Seen (None Seen) /HPF Urine Culture Reflexed NO (NO) Salicylates < 1.0 L (2-20) mg/dL Urine Opiates Level NEGATIVE (NEGATIVE) Ur Methadone NEGATIVE (NEGATIVE) Acetaminophen < 10 L (10-30) ug/ml Urine Barbiturates NEGATIVE (NEGATIVE) Ur Phencyclidine (PCP) NEGATIVE (NEGATIVE) Urine Amphetamine NEGATIVE (NEGATIVE) U Benzodiazepine Level POSITIVE A (NEGATIVE) Urine Cocaine NEGATIVE (NEGATIVE) Urine Marijuana (THC) NEGATIVE (NEGATIVE) Ethyl Alcohol < 10 (0-10) mg/dL 03/06/24 Range/Units 13:50 WBC 6.9 (4.23-9.07) x10^3/uL RBC 4.75 (4.63-6.08) x10^6/uL Hgb 14.9 (13.7-17.5) g/dL Hct 42.7 (40.1-51.0) % MCV 89.9 (79.0-92.2) fL MCH 31.4 (25.7-32.2) pg MCHC 34.9 (32.3-36.5) g/dL RDW 12.5 (11.6-14.4) % Plt Count 357 H (163-337) x10^3/uL MPV 8.8 L (9.4-12.4) fL Gran % 77.3 H (34.0-67.9) % Immature Gran % (Auto) 0.3 (0.001-0.429) % Nucleat RBC Rel Count 0.0 (0.00-0.2) % Eos # (Auto) 0.01 L (0.04-0.54) x10^3/uL Immature Gran # (Auto) 0.02 (0.001-0.031) x10^3u/L Absolute Lymphs (auto) 0.98 L (1.32-3.57) x10^3/uL Absolute Monos (auto) 0.50 (0.30-0.82) x10^3/uL Absolute Nucleated RBC 0.00 (0.00-0.012) x10^3u/L Lymphocytes % 14.3 L (21.8-53.1) % Monocytes % 7.3 (5.3-12.2) % Eosinophils % 0.1 L (0.8-7.0) % Basophils % 0.7 (0.2-1.2) % Absolute Granulocytes 5.29 (1.78-5.38) x10^3/uL Basophils # 0.05 (0.01-0.08) x10^3/uL Sodium (135-145) mmol/L Potassium (3.5-5.1) mmol/L Chloride (98-107) mmol/L Carbon Dioxide (22-30) mmol/L Anion Gap (5-15) MEQ/L BUN (9-20) mg/dL Creatinine (0.66-1.25) mg/dL Estimated GFR ML/MIN Glucose (74-106) mg/dL Calcium (8.4-10.2) mg/dL Total Bilirubin (0.2-1.3) mg/dL AST (17-59) U/L ALT (0-50) U/L Alkaline Phosphatase (38-126) U/L Serum Total Protein (6.3-8.2) g/dL Albumin (3.5-5.0) g/dL Urine Color (Yellow) Urine Appearance (Clear) Urine pH (4.6-8.0) Ur Specific [place] (1.005-1.030) Urine Protein (Negative) Urine Glucose (UA) (Negative) mg/dL Urine Ketones (Negative) Urine Blood (Negative) Urine Nitrite (Negative) Urine Bilirubin (Negative) Urine Urobilinogen (0.2) mg/dL Ur Leukocyte Esterase (Negative) U Hyaline Cast (Auto) (0-2) /LPF Urine Microscopic RBC (0-5) /HPF Urine Microscopic WBC (0-5) /HPF Ur Epithelial Cells (None Seen) /HPF Urine Bacteria (None Seen) /HPF Urine Culture Reflexed (NO) Salicylates (2-20) mg/dL Urine Opiates Level (NEGATIVE) Ur Methadone (NEGATIVE) Acetaminophen (10-30) ug/ml Urine Barbiturates (NEGATIVE) Ur Phencyclidine (PCP) (NEGATIVE) Urine Amphetamine (NEGATIVE) U Benzodiazepine Level (NEGATIVE) Urine Cocaine (NEGATIVE) Urine Marijuana (THC) (NEGATIVE) Ethyl Alcohol (0-10) mg/dL - Progress Progress: improved Progress Note: 03/06/24 15:41 Differential diagnosis includes subdural hematoma from fall, other injury, fever, infection, electrolyte abnormality Patient was given fluids, Ativan, thiamine, continued observation here. Head CT did not review any subdural hematomas or other issues. Electrolytes, UA came back with most likely dehydration. Patient feels improved. Repeat neurological exam remained stable. Plan for discharge home at this point in time. Patient will need to return here sooner for any new or changing symptoms. We did apprise counselor patient on not drinking, given outpatient resources for close follow-up. May return here sooner for any new or changing symptoms. Counseled pt/family regarding: lab results, diagnosis, need for follow-up, rad results - Departure Departure Disposition: Home Clinical Impression: Dehydration, Alcohol abuse Condition: Stable Critical Care Time: No Referrals: ALIYAH ESPITIA [Primary Care Provider] - Follow up/PCP as directed
[2024-03-06 14:07] LABS: Appearance Clear (Clear); Bacteria None Seen /HPF (None Seen); Bilirubin Negative (Negative); Blood Negative (Negative); Epithelial Cells None Seen /HPF (None Seen); Glucose, Urine Negative (Negative); Hyaline Casts NONE SEEN /LPF (0-2); Ketones 15 (Negative); Leukocyte Esterase Negative (Negative); Nitrite Negative (Negative); Ph 6.5 (4.6-8.0); Protein,Urine Dip Negative (Negative); RBC 0-2 /HPF (0-5); Specific Gravity <=1.005 (1.005-1.030); Urobilinogen 0.2 mg/dL (0.2); WBC 0-2 /HPF (0-5)
[2024-03-06 14:08] LABS: ADD URINE CULTURE? NO (NO)
[2024-03-06] MEDS ORDERED: Zofran 4 MG/2 ML VIAL ONE (14:08)
[2024-03-06] MEDS ORDERED: THIAMINE 200 MG/2 ML ONE (14:09)
[2024-03-06] MEDS ORDERED: Ativan 2 MG/1 ML VIAL ONE (14:09)
[2024-03-06] MEDS ORDERED: Sodium Chloride 0.9% 1000 ML 1,000 ML ONE (14:09)
[2024-03-06] MEDS: Zofran 4 MG/2 ML VIAL IV ONE (14:12)
[2024-03-06] MEDS: Ativan 2 MG/1 ML VIAL IV ONE (14:12)
[2024-03-06] MEDS: THIAMINE 200 MG/2 ML IV ONE (14:12)
[2024-03-06] MEDS: Sodium Chloride 0.9% 1000 ML 1,000 ML IV STA (14:12)
[2024-03-06 14:22] LABS: ACETAMINOPHEN < 10 ug/ml (10-30); ALBUMIN 4.4 g/dL (3.5-5.0); ALKALINE PHOSPHATASE 145 U/L (38-126); ANION GAP 13.4 MEQ/L (5-15); BLOOD UREA NITROGEN 5 mg/dL (9-20); CHLORIDE 102 mmol/L (98-107); Calcium 9.5 mg/dL (8.4-10.2); Carbon Dioxide 25 mmol/L (22-30); Creatinine 1 0.67 mg/dL (0.66-1.25); EST GLOMERULAR FILTRATION RATE 132.1 ML/MIN; ETHYL ALCOHOL < 10 mg/dL (0-10); Glucose 116 mg/dL (74-106); Potassium 3.6 mmol/L (3.5-5.1); SALICYLATE < 1.0 mg/dL (2-20); SGOT/AST 54 U/L (17-59); SGPT/ALT 46 U/L (0-50); SODIUM 136 mmol/L (135-145); Total Protein 7.3 g/dL (6.3-8.2)
[2024-03-06 14:36] LABS: Amphetamine,Urine NEGATIVE (NEGATIVE); Barbiturate,Urine NEGATIVE (NEGATIVE); Benzodiazepine,Urine POSITIVE (NEGATIVE); Cocaine,Urine NEGATIVE (NEGATIVE); Methadone,Urine NEGATIVE (NEGATIVE); Opiate,Urine NEGATIVE (NEGATIVE); PCP,Urine NEGATIVE (NEGATIVE); THC,Urine NEGATIVE (NEGATIVE)
--- NOTE | 2024-03-06 15:13 | XRAY ---
Indication: Altered mental status. Multiple contiguous axial images obtained through the head without contrast. Comparison: June 05, 2013 Normal appearing brain parenchyma, ventricles, and bony calvarium. Visualized paranasal sinuses and mastoid air cells are clear. Impression: Continued normal CT head without contrast exam.
[2024-03-06 15:43] VITALS: BP 123/81
[2024-03-06 15:45] VITALS: PULSE 76; RESP 16
== END 2024-03-06 15:47 | disposition home or self-care (01) ==
LOC: ED 13:10
DX: F10.10 Alcohol abuse, uncomplicated (principal); E86.0 Dehydration; Z79.899 Other long term (current) drug therapy; Z72.0 Tobacco use
CPT/HCPCS: 36000; 36415; 70450; 80053; 80143; 80179; 80307; 81001; 82077; 85025; 93005; 96374; 96375; 99284; J2060; J2405